=== PATIENT | male | born 1990 | race Caucasian/White ===

== ENCOUNTER 2021-01-30 08:42 | Emergency (ER) | payer BC ==
[2021-01-30 09:29] LABS: HEMOGLOBIN 15.8 gm/dl (14.0-17.5); RED BLOOD COUNT 5.09 M/UL (4.20-5.50)
[2021-01-30 09:55] LABS: BUN/CREATININE RATIO 15 (0-10)
== END 2021-01-30 12:30 | disposition home or self-care (01) ==
LOC: ER1 08:42
PROVIDERS: Emergency Medicine
DX: R55 Syncope and collapse (principal); I10 Essential (primary) hypertension
CPT/HCPCS: 70450; 71045; 80053; 82550; 82553; 83874; 84484; 85025; 85379; 93005; 99284; J7030; Q9967